=== PATIENT | female | born 1970 | race Caucasian/White ===

== ENCOUNTER 2016-07-20 21:15 | Emergency (ER) | payer OTHER ==
[~2016-07-20] VITALS: Ht 165.1 cm; Wt 68.7 kg
[~2016-07-20 21:15] MED LIST: HYDR-3240 PO
[2016-07-20] MEDS ORDERED: ASCO100072 PO (21:47)
[2016-07-20 22:24] VITALS: BP 130/80
[2016-07-20 22:26] LABS: HEMOGLOBIN 14.2 g/dL (11.7-16.4)
[2016-07-20 22:38] LABS: ASPARTATE AMINO TRANSFERASE 21 U/L (15-37); BLOOD UREA NITROGEN 14 mg/dL (7-18)
== END 2016-07-21 00:11 | disposition left against medical advice (07) ==
LOC: ED 23:55
DX: R10.13 Epigastric pain (principal); G89.29 Other chronic pain; F17.200 Nicotine dependence, unspecified, uncomplicated; Z90.49 Acquired absence of other specified parts of digestive tract
CPT/HCPCS: 36415; 74020; 80053; 83690; 84703; 85025; 93005

== ENCOUNTER 2019-04-02 09:22 | Emergency (ER) | payer OTHER ==
[~2019-04-02] VITALS: Ht 165.1 cm; Wt 70.6 kg
[~2019-04-02 09:22] MED LIST changes: +ASCO100072 PO
[2019-04-02 09:23] VITALS: BP 147/91
--- NOTE | 2019-04-02 09:28 | NUR ---
SENIOR PHARMACY TECHNICIAN: EKG COMPLETED IN TRIAGE.
--- NOTE | 2019-04-02 10:57 | NUR ---
PT TO CT.
--- NOTE | 2019-04-02 12:08 | NUR ---
Patient given discharge instructions and they have confirmed that they understand the instructions. Patient ambulatory with steady gait.
== END 2019-04-02 12:18 | disposition home or self-care (01) ==
LOC: ED 10:48
DX: R20.2 Paresthesia of skin (principal); F17.200 Nicotine dependence, unspecified, uncomplicated; Z72.89 Other problems related to lifestyle; Z90.89 Acquired absence of other organs; Z90.49 Acquired absence of other specified parts of digestive tract
CPT/HCPCS: 70450; 93005; 99284

== ENCOUNTER 2020-09-19 21:22 | Emergency (ER) | payer OTHER ==
[~2020-09-19] VITALS: Ht 165.1 cm; Wt 77.1 kg
[~2020-09-19 21:22] MED LIST changes: +HYDR-2214 PO; -HYDR-3240 PO
[2020-09-19 22:44] LABS: ALANINE AMINOTRANSFERASE 35 U/L (12-78); ALBUMIN 3.2 g/dL (3.4-5.0); ANION GAP 7 mmol/L (5-15); CALCIUM 8.7 mg/dL (8.5-10.1); CHLORIDE 107 mmol/L (98-107); CREATININE 0.69 mg/dL (0.55-1.02)
[2020-09-19 22:48] LABS: BASOPHILS % (AUTO) 1 % (0-1); EOSINOPHILS % (AUTO) 1 % (1-7); LYMPHOCYTES % (AUTO) 50 % (22-44); MEAN CORPUSCULAR HEMOGLOBIN 32.2 pg (27.0-34.8); MEAN CORPUSCULAR HGB CONC 34.2 g/dL (32.4-35.8); MEAN PLATELET VOLUME 7.7 fL (7.4-10.4); MONOCYTES % (AUTO) 10 % (2-9); NEUTROPHILS % (AUTO) 38 % (42-75); PLATELET COUNT 310 x10^3/uL (130-400); RED BLOOD COUNT 4.54 x10^6/uL (3.82-5.3); RED CELL DISTRIBUTION WIDTH 13.5 % (9.6-15.2)
[2020-09-19 22:49] LABS: ALKALINE PHOSPHATASE 67 U/L (45-117); BILIRUBIN,TOTAL 0.2 mg/dL (0.2-1.0); TOTAL PROTEIN 6.7 g/dL (6.4-8.2)
[2020-09-19 23:03] LABS: MD NO
--- NOTE | 2020-09-19 23:30 | NUR ---
ASSUMED CARE OF PT. PT IS HERE D/T ABD PAIN/TENDERNESS X3 DAYS W/O EMESIS. SHE HAS BEEN EATING SMALL AMOUNTS OF FOOD. DENIES DIARHEA.
[2020-09-19] MEDS ORDERED: KETOROLAC 30 MG/1 ML ONE (23:59)
[2020-09-20] MEDS ORDERED: KETOROLAC 30 MG/1 ML IM ONE
--- NOTE | 2020-09-20 00:05 | NUR ---
PT TO CT AND BACK. MEDICATED PER JUNIan MORILLO. CALL LIGHT W/IN REACH.
--- NOTE | 2020-09-20 00:45 | NUR ---
BEDSIDE. PT UP TO BATHROOM AND BACK, NO INCIDENT. CALL LIGHT W/IN REACH. YISEL.
[2020-09-20 01:00] LABS: MICROSCOPIC AUTO
[2020-09-20 02:22] VITALS: BP 112/73
--- NOTE | 2020-09-20 02:22 | NUR ---
PT SITTING ON GUR[place]NGEL ON PHONE. PLAN IS D/C WAITING FOR PAPERWORK, PT UPDATED. YISEL YAP. CALL LIGHT W/IN REACH.
--- NOTE | 2020-09-20 02:41 | NUR ---
Patient/Caregiver given discharge instructions and they have confirmed that they understand the instructions. Patient ambulatory with steady gait.
== END 2020-09-20 02:43 ==
LOC: ED 09-20 02:15
DX: R10.84 Generalized abdominal pain (principal); R11.0 Nausea; Z90.49 Acquired absence of other specified parts of digestive tract
CPT/HCPCS: 36415; 74021; 74176; 80053; 81001; 83690; 84703; 85025; 87086; 96372; 99285; J1885